=== PATIENT | male | born 1995 | race Two or more races ===

== ENCOUNTER 2018-12-29 19:35 | Emergency (ER) | payer SELFPAY ==
[~2018-12-29] VITALS: Ht 175.3 cm; Wt 66.0 kg
[2018-12-29 22:53] VITALS: BP 137/83
== END 2018-12-29 23:03 | disposition home or self-care (01) ==
LOC: ER 19:35
DX: S82.64XA Nondisplaced fracture of lateral malleolus of right fibula, initial encounter for closed fracture (principal); F12.10 Cannabis abuse, uncomplicated; V49.49XA Driver injured in collision with other motor vehicles in traffic accident, initial encounter; Y93.89 Activity, other specified; Y92.488 Other paved roadways as the place of occurrence of the external cause
CPT/HCPCS: 29515; 73610; 73630; 99283